=== PATIENT | female | born 1975 | race Caucasian/White ===

== ENCOUNTER 2019-05-11 11:40 | Day surgery (SDC) | payer OTHER, BC ==
[2019-05-11] MEDS: SOD CHLORIDE 0.9% 1,000 ML IV (13:41)
[2019-05-11] MEDS ORDERED: EPINEPHrine 1 MG/ML 30 ML INJ ×2 (14:19→14:58)
[2019-05-11] MEDS ORDERED: ONDANSETRON 4 MG INJ (14:45)
[2019-05-11] MEDS ORDERED: LIDOCAINE 2% (SDV) 5 ML INJ (14:45)
[2019-05-11] MEDS ORDERED: PROPOFOL 20 ML (14:45)
[2019-05-11] MEDS ORDERED: METOCLOPRAMIDE 10 MG INJ (14:45)
[2019-05-11] MEDS ORDERED: CEFAZOLIN 1 GM INJ (14:45)
[2019-05-11] MEDS ORDERED: MEPERIDINE 100 MG INJ (14:45)
[2019-05-11] MEDS: CEFAZOLIN 1 GM/50 ML (PMX) 50 ML IVPB (15:04)
[2019-05-11] MEDS: BUPIVACAINE 0.5%/EPI (SDV) 30 ML INJ (15:05)
[2019-05-11] MEDS ORDERED: EPHEDrine 25 MG/5 ML SYG IV (16:00)
[2019-05-11] MEDS ORDERED: hydrALAzine 20 MG INJ IV (16:00)
[2019-05-11] MEDS ORDERED: MIDAZOLAM 1 MG/ML 2 ML INJ IV (16:00)
[2019-05-11] MEDS ORDERED: DIPHENHYDRAMINE 50 MG INJ IV (16:00)
[2019-05-11] MEDS ORDERED: HYDROmorphONE 1 MG/5 ML IV SYRINGE IV ×3 (16:00)
[2019-05-11] MEDS ORDERED: METOCLOPRAMIDE 10 MG INJ IV (16:00)
[2019-05-11] MEDS ORDERED: FENTAnyl 50 MCG/ML VIAL IV ×2 (16:00)
[2019-05-11] MEDS ORDERED: LABETALOL HCL 20MG INJ IV (16:00)
[2019-05-11] MEDS ORDERED: MEPERIDINE 25 MG INJ IV (16:00)
[2019-05-11] MEDS ORDERED: OXYCODONE/ACETAMINOPHEN (5/325) TAB PO (16:00)
[2019-05-11] MEDS: OXYCODONE/ACETAMINOPHEN (5/325) TAB PO (16:03)
[2019-05-11] MEDS: ONDANSETRON 4 MG INJ IV (16:03)
[2019-05-11] MEDS: FENTAnyl 50 MCG/ML VIAL IV ×2 (16:03→16:28)
== END 2019-05-11 17:45 | disposition home or self-care (01) ==
LOC: SDS 11:40
DX: S83.271D Complex tear of lateral meniscus, current injury, right knee, subsequent encounter (principal); S83.241D Other tear of medial meniscus, current injury, right knee, subsequent encounter; X58.XXXD Exposure to other specified factors, subsequent encounter; M94.261 Chondromalacia, right knee; M65.861 Other synovitis and tenosynovitis, right lower leg; E11.9 Type 2 diabetes mellitus without complications; E78.5 Hyperlipidemia, unspecified; Z79.84 Long term (current) use of oral hypoglycemic drugs; Z79.4 Long term (current) use of insulin
CPT/HCPCS: 29880; 82962